=== PATIENT | female | born 1970 | race Caucasian/White ===

== ENCOUNTER 2024-08-09 02:53 | Emergency (ER) | payer BC, SELFPAY ==
--- OUTSIDE RECORDS SUMMARY | 2019-06-18 09:27 | XMS_ITS | Continuity of Care Document ---
Author Organization [facility] Address [address] [place] [address] Phone Care Team Providers Care Rd Mechanical Engineer Name Role Phone Jay Deng MD Unavailable Unavailable Allergies, Adverse Reactions, Alerts Substance Reaction Status Criticality amoxicillin Active No Information Medications Medication Instructions Dosage Effective Dates (start - stop) Status Comments prednisone 5 mg tablet take 2 Tablet by oral route every morning 10 MG - Active Plaquenil 200 mg tablet take 1 tablet by oral route 2 times every day 200 MG - Active trazodone 50 mg tablet take 1 Tablet by oral route every bedtime - Active Vitamin B-12 1,000 mcg tablet take 2 Tablet by Oral route every day 2 Tablet - Active Vitamin D3 2,000 unit tablet take 1 Tablet by Oral route every day 1 Tablet - Active OSTEO BI-FLEX (unknown strength) take 2 Tablet by Oral route every day Not Available - Active glucosamine gabapentin 300 mg capsule Take 1 capsule in the AM and 2 capsules in the PM - Active BIOTIN (unknown strength) take 1 tablet by oral route every day Not Available - Active ibuprofen 200 mg tablet take 3 tablet by oral route in the AM - Active DRY EYE RELIEF (unknown strength) as needed Not Available - Active Procedures Procedure Date Office/Outpatient Visit, Est Office/Outpatient Visit, Est Routine Venipuncture Specimen Handling Rbc Sed Rate, Nonautomated Assay Of Serum Albumin Assay Of Creatinine Transferase (Ast) (Sgot) Alanine Amino (Alt) (Sgpt) Assay Of Ck (Cpk) CReactive Protein Antinuclear Antibodies Rheumatoid Factor, IGM Rheumatoid Factor, IGG, IGA Complete Cbc WAuto Diff Wbc Advance Directives Directive Yes / No Effective Date File Name No Information Encounters Encounter Description Practice Location Reason(s) For Visit Diagnoses Date Provider Providers Copied on Encounter [facility] , [address], [place], [address], [place] tel:[phone] [facility] , No Information 0 Sowmya Thompson. [facility] [address], [place], [address], [place]. tel:[phone] Office/Outpa tient Visit, Est [facility] , [address], [place], [address], [place] tel:[phone] [facility] , Inflammatory Polyarthropa thy (chief complaint) Inflammatory polyarthropa thyBone healthHigh risk medication monitoringDr y mouthFatigue 0 Sowmay Thompson. [facility] [address], [place], [address], [place]. tel:[phone] Referring Provider: Jay Stokes, [facility] [address], [place], [address]. tel:[phone] Office/Outpa tient Visit, Est [facility] , [address], [place], [address], [place] tel:[phone] [facility] , Joint pain multiple sites 0 Sowmya Thompson. [facility] [address], [place], [address], . tel:[phone] Referring Provider: Jay Stokes, [facility] [address], [place], [address]. tel:[phone] Family History Family Member Type Diagnosis Age At Onset Sister Problem (finding) Systemic lupus erythema tosus Payers Payer name Insurance type Covered alliance party ID Authorgrecia murphy(s) [facility] [id number] Social History Type Description Quantity Date Captured Comments Sex Female Smoking Status No Information Chief Complaint And Reason For Visit No Information Reason For Referral Reason For Referral No Information History Of Present Illness Encounter Date Complaint History Of Prese nt Illness Inflammatory Polyarthropathy Functional Status Date Functional Assessmen t No Information Instructions Date Instruction Additional Infor mation No Information Assessments Type Assessment Date No Information Patient Care Teams Name Effective Dates (start - stop) Status Members No Information
--- OUTSIDE RECORDS SUMMARY | 2019-06-18 09:27 | XMS_ITS | Continuity of Care Document ---
Author Organization [facility] Address [address] [place] [address] Phone Care Team Providers Care Used Equipment Sales Representative Name Role Phone Jay Deng MD Unavailable [...] [facility] , [address], [place], [address], [place] tel:[phone] [facility] , No Information 0 Sowmya Thompson. [facility] [address], [place], [address], [place]. tel:[phone] Office/Outpa tient Visit, Est [facility] , [address], [place], [address], [place] tel:[phone] [facility] , Inflammatory Polyarthropa thy (chief complaint) Inflammatory polyarthropa thyBone healthHigh risk medication monitoringDr y mouthFatigue 0 Sowmya Thompson. [facility] [address], [place], [address], [place]. tel:[phone] Referring Provider: Jay Stokes, [facility] [address], [place], [address]. tel:[phone] Office/Outpa tient Visit, Est [facility] , [address], [place], [address], [place] tel:[phone] [facility] , Joint pain multiple sites 0 Sowmya Thompson. [facility] [address], [place], [address], . tel:[phone] Referring Provider: Jay Stokes, [facility] [address], [place], [address]. tel:[phone] Family History Family Member Type Diagnosis Age At Onset Sister Problem (finding) Systemic lupus erythema tosus Payers Payer name Insurance type Covered alliance party ID Authorgrecia murphy(s) [facility] [id number] Social History Type Description Quantity Date Captured [...]
[2024-08-09] VITALS (8 sets, daily range): BP systolic 133–155; BP diastolic 86–92; PULSE 79–97; RESP 16; TEMP 36.4; O2SAT 94–97; BMI 31.9
--- OUTSIDE RECORDS SUMMARY | 2024-08-09 02:56 | XMS_ITS | Clinical Summary ---
Author Organization [facility] Address [address] [place] [address] Care Team Providers Care Manager Equipment Name Role Phone [facility] Primary Care Provider + Allergies Active Allergy Reactions Criticality Noted Date Comments Amoxicillin Nausea 09/28/2017 And dizzy Seasonal Allergies 10/15/2012 Medications glucosamine-cho ndroitin 500-400 MG CAPS per capsule Take 1 capsule by mouth daily Active cyanocobalamin (VITAMIN B-12) 1000 MCG tablet Take by mouth daily Active Cholecalciferol (VITAMIN D3) 2000 UNITS CAPS Acti ve clindamycin (CLINDAMAX) 1 % topical gel 4 7 Active albuterol (PROAIR HFA/PROVENTIL HFA/VENTOLIN HFA) 108 (90 BASE) MCG/ACT InhalerIndicati ons:Acute bronchitis with symptoms > 10 days Inhale 2 puffs into the lungs every 6 hours as needed for shortness of breath / dyspnea or wheezing 1 Inhaler 7 Active guaiFENesin-cod eine (ROBITUSSIN AC) 100-10 MG/5ML SOLN solutionIndicat ions:Acute bronchitis with symptoms > 10 days 1-2 tsp PO qhs prn 120 mL 7 Active azithromycin (ZITHROMAX) 250 MG tabletIndicatio ns:Acute bronchitis with symptoms > 10 days Two tablets first day, then one tablet daily for four days. 6 tablet 7 Active amitriptyline (ELAVIL) 10 MG tablet Take 2 tablet at bedtime if needed for insomnia 8 Active Active Problems Problem Noted Date Diagnosed Date S/P LEEP of cervix 10/23/2012 Overview (10/23/2012): 02/2006: Leep with Dr. Carmen Nelson. VERITO III, extends to margins 06/2012: NIL pap ( outside record) Family History Medical History Relation Comments Diabetes Father Hyperlipidemia Father Hypertension Father Prostate Cancer Father Substance Abuse Father Relation Status Comments Father Alive Mother Social History Tobacco Use Types Packs/Day Years Used Date Smoking Tobacco: Never Smokeless Tobacco: Never Tobacco Cessation:Counseling Given: Yes Alcohol Use Standard Drinks/Week Comments No 0 (1 standard drink = 0.6 oz pur e alcohol) PHQ-2 Answer Date Recorded PHQ-2 Score 0 03/06/2018 Adolescent Education Answer Date Record ed Getting School Help Needed Not on file 12/03 Comments No Sex and Gender Information Value Date Recorded Sex Assigned at Not on file Legal Sex Female 3:37 AM SPECIAL LOAN OFFICER Gender Identity Not on file Sexual Orientation Not on file Last Filed Vital Signs Vital Sign Reading Time Taken Comments Blood Pressure 116/76 02/22/2018 10:40 AM SPECIAL LOAN OFFICER Pulse 79 02/22/2018 10:40 AM SPECIAL LOAN OFFICER Temperature 36.5 C (97.7 F) 09/28/2017 3:21 PM CDT Respiratory Rate 16 02/22/2018 10:40 AM SPECIAL LOAN OFFICER Oxygen Saturation 98% 02/22/2018 10:40 AM SPECIAL LOAN OFFICER Inhaled Oxygen Concentration - - Weight 82.1 kg (181 lb) 02/22/2018 10:40 AM SPECIAL LOAN OFFICER Height 170.2 cm (5' 7) 02/22/2018 10:40 AM SPECIAL LOAN OFFICER Body Mass Index 28.35 02/22/2018 10:40 AM SPECIAL LOAN OFFICER Plan of Treatment Not on file Insurance [facility] [address] Care Teams Manager Equipment Relationship Specialty Start Date End Date [facility] PCP - General Family Practice 01/10/18
--- OUTSIDE RECORDS SUMMARY | 2024-08-09 02:56 | XMS_ITS | Patient Health Record ---
Author Organization [facility] Address [address] [place] [address] Care Team Providers Care Production Hand Name Role Phone Ashley Luara Primary Care Provider [phone] Allergies Allergen (clinical drug ingredient) Drug/Non Drug Allergy documented on EMR Reaction Allergy Type Onset Date Status amoxicillin Amoxicillin dizziness, diarrhea, nausea Drug Allergy Active Reason For Referral No Information Medications Medication SIG (Take, Route, Frequency, Duration) Notes Start Date End Date Status Vitamin B12 1000 MCG 2 tablets Orally On ce a day Active Glucosamine Chondr Complex 2 tablets Ora lly Once a day Active Amitriptyline HCl 2 tablets Orally bef ore bed Active Vitamin D 1000 UNIT 1 tablet Orally Once a day Active Problems Problem Type SNOMED Code ICD Code Onset Dates Problem Status W/U Status Risk Notes Problem 688589148 Dysmenorrhea (N94.6) Active confirmed Problem 306802171 Menorrhagia with regular cycle (N92.0) Active confirmed Problem 30125330 Intramural leiomyoma of uterus (D25.1) Active confirmed Plan Of Treatment No Information Insurance Providers Payer Name Payer Address Payer Phone Subscriber Number Group Number Insured Name Patient Relationship to Insured Coverage Start Date Coverage End Date [place] [address] [address] [place] [address] [id number] Alison Kelsey Self - patient is the insured 7 Medical (General) History Surgical History Surgery Date(Month/Year) Laproscopy x 3 [id number] ACL left knee 2000 Hospitalization History Reason Date(Month/Year) Child , male 1994 Child , male 1996
--- OUTSIDE RECORDS SUMMARY | 2024-08-09 02:56 | XMS_ITS | Clinical Summary ---
Author Organization [facility] Address [address] [place] [id number] Care Team Providers Care Application Developer Manager Name Role Phone Regino Hensley MD Unavailable [phone] Alba Ferrell Primary Care Provider [phone] Allergies Active Allergy Reactions Criticality Noted Date Comments Amoxicillin Nausea Only 09/28/2017 And dizzy Medications cholecalciferol (VITAMIN D3) 2,000 unit capsule Take by mouth. Activ e cyanocobalamin 1,000 mcg tablet Take by mouth. Activ e XIIDRA 5 % dpet INSTILL 1 DROP INTO BOTH EYES TWICE DAILY DIRECTED. 020 Active glucosam dailey vsk-owggwkprh-B -Mn (GLUCOSAMINE-CH ONDROITIN) 291-857-51-3 mg cap Take 1 capsule by mouth. Active ikqtp-3g-ojm-ep a-fish oil-D3 (De3 Dry Eye [place] Benefits) 800 mg-186.67 mg-8.33 mcg cap Take by mouth. Active biotin (Hair, Skin and Nails, biotin,) 10,000 mcg chew Chew by mouth. 024 Active DULoxetine (CYMBALTA) 60 mg Delayed-release capsuleIndicati ons:Neuropathy Take 1 Capsule (60 mg) by mouth once daily. 90 Capsule 3 024 Active omeprazole (PRILOSEC) 40 mg Delayed-Release capsuleIndicati ons:Gastroesoph ageal reflux disease without esophagitis Take 1 Capsule (40 mg) by mouth once daily before a meal. 90 Capsule 024 Active polyethylene glycol-electrol yte (GOLYTELY) 236-22.74-6.74 -5.86 gram suspensionIndic ations:Encounte r for screening colonoscopy Drink 2 liters the day before colonoscopy and 2 liters 6 hours before colonoscopy appointment 4000 mL 024 Active amitriptyline 25 mg tabletIndicatio ns:Neuropathy,D ifficulty sleeping,Headac he syndrome TAKE 1 TABLET BY MOUTH AT BEDTIME 90 Tablet 1 025 Active semaglutide (weight loss) (Wegovy) 1 mg/0.5 mL subcutaneous penIndications: Obesity (BMI 30-39.9) Inject 1 mg subcutaneous once weekly. 6 mL 2 025 Active amitriptyline (ELAVIL) 25 mg tabletIndicatio ns:Neuropathy,D ifficulty sleeping,Headac he syndrome Take 1 Tablet (25 mg) by mouth at bedtime. 90 Tablet 3 024 2024 Discontinued semaglutide, weight loss, (Wegovy) 2.4 mg/0.75 mL subcutaneous penIndications: Class 2 severe obesity with body mass index (BMI) of 35 to 39.9 with serious comorbidity (HC) Inject 2.4 mg subcutaneous once weekly. Start after 4 weeks of 1.7 mg dosing. Continue as maintenance dose. 9 mL 3 025 2024 Discontinued(* Medication adjustment) semaglutide (weight loss) (Wegovy) 1.7 mg/0.75 mL subcutaneous penIndications: Obesity (BMI 30-39.9) Inject 1.7 mg subcutaneous once weekly. 6 mL 3 025 2024 Discontinued(* Medication adjustment) Active Problems Problem Noted Date Diagnosed Date Pap smear for cervical cancer screening 07/07/19 24 Overview (07/07/2023): 05/2023 NIL/HPV negative. Plan: Pap/HPV due 05/2028. Prediabetes 06/26/2023 Malignant neoplasm of overla pping sites of left breast in female, estrogen receptor positive 06/26/2023 Chronic painful polyneuropathy after chemotherap y 03/26/2021 Total body pain 04/13/2019 Anxiety 04/13/2019 Overview (04/13/2019): March 2019: Starting wellbutrin, will need to watch both depression and anxiety symptoms on this. Episode of moderate major depression 04/13/2019 Overview (04/13/2019): March 2019: Starting wellbutrin, will need to watch both depression and anxiety symptoms on this. Neuropathy 04/11/2019 Overview (04/11/2019): Started towards end of Chemotherapy Nov 2018. Feet and hands. Plantar fascial fibromatosis 10/03/2006 Resolved Problems Problem Noted Date Diagnosed Date Resolved Date Malignant neoplasm of upper- inner quadrant of left breast in female, estrogen receptor positive 08/19/2018 03/26/2021 Cancer Staging:Clinical: ycT2, ycN1(f), cM0, G2, ER+, MI+, HER2- - Signed by Robinson Smith MD on 08/19/2018 Pathologic: ypT1c, ypN1a, cM0, G1 - Signed by Celestina Calixto PA on 10/02/2018 Overview (04/11/2019): January 2018: left breast cancer, Surgery, chemotherapy and radiation. Radiation completed Nov 2018. Encounters Date Type Department Care Team Description 07/15/2024 Refill [facility] [address] [place] [address] Alba Ferrell PA Refill Request (Amitriptyline) 07/13/2024 Refill [facility] [address] [place] [address] Alba Ferrell PA Refill Request (Wegovy) 07/12/2024 Refill [facility] [address] [place] [address] Alba Ferrell PA Refill Request (Wegovy Inj 1.7mg/0.75ml) from Last 3 Months Immunizations Immunization Administration Dates Next Due Tdap 08/24/2015 Family History Medical History Relation Name Comments Cancer Father bladder and pro state, dx in 70s Cancer-prostate Father 70's yrs old Hyperlipidemia Father Hypertension Father Kidney disease Father Melanoma Father 70's yrs old Mental illness Mother Cancer-breast No Family History Cancer-colon No Family History Cancer-ovarian No Family History Cancer-pancreatic No Family History Relation Name Status Comments Father Alive Mother Social History Tobacco Use Types Packs/Day Years Used Date Smoking Tobacco: Never Smokeless Tobacco: Never Tobacco Cessation:Counseling Given: Yes Alcohol Use Standard Drinks/Week Comments Yes 0 (1 standard drink = 0.6 oz pur e alcohol) 3-4 times a year PHQ-2 Answer Date Recorded PHQ-2 TOTAL SCORE 0 06/23/2023 Social Connections Answer Date Recorded Do you often feel lonely or isolated from those around you? 0 06/23/2023 Financial Resource Strain Answer Date R ecorded Difficulty of Paying Living Expenses 3 06/23/2023 Difficulty of Paying Living Expenses Not on file 06/23/2023 Food Insecurity Answer Date Recorded Do you worry your food will run out before you are able to buy more? 1 06/23/2023 Transportation Needs Answer Date Record ed Does lack of transportation keep you from medica l appointments? 1 06/23/2023 Does lack of transportation keep you from work, meetings or getting things that you need? 1 06/23/2023 Housing Stability Answer Date Recorded What is your housing situation today? 1 06/23/2023 Utilities Answer Date Recorded Do you have trouble paying f or utilities (for example, heat, electricity, water, phone)? 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 Not on file Not on file Not on file Obstetrics History Para Term AB IAB SAB Ectopic Multiple Livin g Live Births 5 2 2 3 3 Date Outcome GA Total Labor Labor/2nd/3rd Weight Sex Type Anes PTL Veronica A1 A5 Name Clin 1994 Term M Vag Landon 1995 Term M Vag Dewayne 1997 Last Filed Vital Signs Vital Sign Reading Time Taken Comments Blood Pressure 127/86 12/21/2023 10:51 AM CDT Pulse 79 12/21/2023 10:51 AM CDT Temperature 37.1 C (98.8 F) 01/24/2022 2:43 PM BRAZING MACHINE OPERATOR Respiratory Rate 16 03/26/2021 1:28 PM BRAZING MACHINE OPERATOR Oxygen Saturation 95% 12/21/2023 10:51 AM CDT Inhaled Oxygen Concentration - - Weight 103 kg (227 lb) 12/21/2023 10:51 AM CDT Height 170.2 cm (5' 7) 12/21/2023 10:51 AM CDT Body Mass Index 35.55 12/21/2023 10:51 AM CDT Plan of Treatment Health Maintenance Due Date Last Done Comments Hepatitis B series for 19+ ( 1 of 3 - 19+ 3-dose series) 07/25/1991 Colonoscopy through age 75 2017 Pneumococcal series for age 50+ (1 of 1 - PCV) 2022 Zoster (shingles) series for age 50+ (1 of 2) 2022 COVID-19 vaccine series ( - season) 2023 Depression screening for age 12+ 06/22/2024 06/23/2023, 09/02/2022, 08/31/2022, Additional history exists Mammogram for age 45-75 08/31/2024 09/01/19 24, 08/24/2022, 02/05/2020 Influenza Vaccine (Season Ended) 2024 BMI (ht and wt on same day) for age 18+ 12/20/2024 12/21/2023, 06/23/2023, 04/14/2021, Additional history exists Tetanus booster 08/23/2025 08/24/2015 Lipids for age 45-75 06/22/2028 06/23/2023, 04/14/19 22 Pap test for age 21-65 06/22/2028 , 06/23/2023, 06/29/2020 (Completed outside of [facility]) Tdap Completed 08/24/2015 HIV for age 15-65 Completed 06/23/2023 Hepatitis C screening for ag e 18-79 Completed 06/23/2023 Medical Devices Implanted Type Area Deputy Jailer Device Identifier Shelf Expiration Date Model / Serial / Lot Port Low Profile Slim W/6fr 1 Lmn [employer] - [id number] Implanted:Qty: 1 on 03/29/2018 by Melissa Morales MD at [facility] Right: Chest [employer] 06/27/2019 [id number] / / [id number] Procedures Procedure Name Priority Date/Time Associated Diagnosis Comments XR MAMMO ESAU BILAT SCREEN Routine 09/01/2023 3:56 PM CDT Visit for screening mammogram ANTI HIV 1/2 Routine 06/23/2023 10:20 AM CDT Screening for HIV (human immunodeficiency virus) ANTI HCV Routine 06/23/2023 10:20 AM CDT Need for hepatitis C screening test LIPID PANEL W REFLEX MEASURED LDL Routine 06/23/2023 10:20 AM CDT Screening cholesterol level RE EXAMINER THIN PREP PAP SCREEN IMAGED Routine 06/23/2023 9:55 AM CDT Screening for malignant neoplasm of cervix from Last 3 Months or Most Recently Relevant to Health Maintenance Results * XR MAMMO ESAU BILAT SCREEN (09/01/2023 3:56 PM CDT) Anatomical Region Laterality Modality BREASTS, Breast Left, Breast Right Bilateral Mammography Impressions 09/01/2023 4:02 PM CDT There is no radiographic evidence for malignancy. Recommend annual mammograms. MAMMOGRAM ASSESSMENT: ACR 1 Negative PATIENTS: You will also receive a letter with your examination results in an easy to read format. If you have questions about your results, please contact your referring provider. Narrative 09/01/2023 4:02 PM CDT For Patients: As a result of the 21st Century Cures Act, medical imaging exams and procedure reports are released immediately into your electronic medical record. You may view this report before your referring provider. If you have questions, please contact your health care provider. XR MAMMO ESAU BILAT SCREEN [[id number]] CLINICAL HISTORY: This is an asymptomatic 53 y.o. patient. INDICATION FOR EXAM: Mammogram Screening. TECHNIQUE: CC & MLO views were obtained. This study was evaluated with the assistance of Computer-Aided Detection. Breast Tomosynthesis was used in interpretation. COMPARISON FILM: Yes 08/24/22 [facility] 02/05/20 [facility] FINDINGS: There are scattered areas of fibroglandular density. There are no dominant masses, suspicious micro calcifications or areas of architectural distortion. Alba JACOBSEN MAMMO Final Resu lt * (ABNORMAL) LIPID PANEL W REFLEX MEASURED LDL (06/23/2023 10:20 AM CDT) CHOLESTEROL,TOTAL 208(H) 100 - 199 mg/dL 06/23/2023 4:47 PM CDT [facility] Comment: Cholesterol, Total Reference Ranges Desirable <200 mg/dL Borderline 200-239 mg/dL High >=240 mg/dL TRIGLYCERIDES 78 <150 mg/dL 06/23/2023 4:47 PM CDT [facility] HDL CHOLESTEROL 83 >40 mg/dL 4:47 PM CDT [facility] NON-HDL CHOLESTEROL 125 <145 mg/dl 06/23/2023 4:47 PM CDT [facility] CHOL/HDL RATIO 2.51 <4.50 06/23/2023 4:47 PM CDT [facility] LDL CHOLESTEROL 109 <=130 mg/dL 06/23/2023 4:47 PM CDT [facility] VLDL CHOLESTEROL 16 <=30 mg/dL 06/23/2023 4:47 PM CDT [facility] PROVIDER ORDERED STATUS RANDOM 06/23/2023 4:47 PM CDT [facility] Blood BLOOD SPECIMEN / Unknown Venipuncture / Unknown 06/23/2023 10:20 AM CDT 06/23/2023 10:22 AM CDT Alba JACOBSEN CHEMISTRY Final Resu lt [facility] [address] [place] [address], [place] * ANTI HCV (06/23/2023 10:20 AM CDT) Pathologist [facility] HEPATITIS C ANTIBODY Non-Reacti ve Non-React everett 06/23/2023 4:39 PM CDT [facility] Comment:Please note, per www .CDC.gov: If a patient is known to be at high risk of HCV infection, or is symptomatic, and the physician's suspicion of HCV infection is high, HCV RNA testing is often employed and is of diagnostic value, even after an initial negative anti-HCV test result. Blood BLOOD SPECIMEN / Unknown Venipuncture / Unknown 06/23/2023 10:20 AM CDT 06/23/2023 10:22 AM CDT Alba JACOBSEN SEND OUTS Final Resu lt Performing Organization Address [facility]/ZIP Co de Phone Number [facility] [address] [place] [address], [place] * ANTI HIV 1/2 (06/23/2023 10:20 AM CDT) [facility] HIV-1/HIV-2 SCREEN Non-Reacti ve Non-Reacti ve 06/23/2023 4:32 PM CDT [facility] Comment:HIV-1 p24 and HIV-1/ HIV-2 Ab Not Detected. Blood BLOOD SPECIMEN / Unknown Venipuncture / Unknown 06/23/2023 10:20 AM CDT 06/23/2023 10:22 AM CDT Alba JACOBSEN SEND OUTS Final Resu lt Performing Organization Address City/[facility]/ZIP Co de Phone Number [facility] [address] [place] [address], [place] * RE EXAMINER THIN PREP PAP SCREEN IMAGED (06/23/2023 9:55 AM CDT) [facility] Case Report Gynecologic Cytology Report Case: [id number] Authorizing Provider: Alba Ferrell PA Collected: 06/23/2023 0955 Ordering Location: [facility] Received: 06/23/2023 1052 Clinic First Screen: Sharifa Hsu Specimen: RE EXAMINER ThinPrep Vial Screening, Cervical 07/06/2023 1:55 PM CDT [facility] [employer] [facility] INTERPRETATION/ RESULT NEGATIVE FOR INTRAEPITHELIAL LESION OR MALIGNANCY (NIL) (none) 07/06/2023 1:55 PM CDT [facility] at 1354 CDT SPECIMEN ADEQUACY Satisfactory for evaluation Endocervical component present 07/06/2023 1:55 PM CDT [facility] HPV REQUEST HPV and PAP 07/06/2023 1:55 PM CDT [facility] Date of LMP unknown 07/06/2023 1:55 PM CDT [facility] Last Pap Date 07/1707/06/2023 1:55 PM CDT [facility] Last Pap Result NIL 1:55 PM CDT [facility] Abnormal Pap or [place] Bx in last 5 years No 07/06/2023 1:55 PM CDT [facility] Menstrual Status Hormonally Suppressed 07/06/2023 1:55 PM CDT [facility] [place] Bx Done Today No 07/06/2023 1:55 PM CDT [facility] Additional Information None given 07/06/2023 1:55 PM CDT [facility] Comment: Cytology is screened at [facility] idemama [facility] - [address], [place] [address] and [facility] - [address], [place] [address] and [facility] - [address] [place] [address] Interpreted at [facility]emama [facility] - [address], [place] [address] Automated Review Successful 07/06/2023 1:55 PM CDT [facility] Comment:Specimen processed s uccessfully by automated metal trimmer device, ThinPrep Imaging System, [employer] ANCILLARY TESTING RE EXAMINER HPV Ordered, Please see separate report 07/06/2023 1:55 PM CDT [facility]AL [facility] Note The pap test is a screening technique, not a diagnostic procedure. It is used primarily to screen for squamous cancers and precursor lesions. Published studies have shown that it is subject to both false negative and false positive results. The pap test should not be used as the sole means to diagnose or exclude pre-malignant and malignant lesions. 07/06/2023 1:55 PM CDT [facility]- [facility] Other (Cervical) Non-Blood / Unknown 06/23/2023 9:55 AM CDT 06/23/2023 10:52 AM CDT us Alba JACOBSEN PATHOLOGY/CYTOLOGY Final R esult [facility] [address] [place] [address], from Last 3 Months or Most Recently Relevant to Health Maintenance Insurance [facility] Advance Directives * Full Code (Latest Code Status on File) Date Activated Date Inactivated Comments 09/19/2018 9:42 AM 09/19/2018 5:31 PM * Full Code Date Activated Date Inactivated Comments 03/29/2018 9:48 AM 03/29/2018 4:35 PM Care Teams Application Developer Manager Relationship Specialty Start Date End Date Alba Ferrell [place] [address] PCP - General Physician Watch Parts Grinder 06/26/23 Regino Hensley MD [address] [facility] [address] [place] [address] Rheumatology Rheumatology 10/30/19
--- NOTE | 2024-08-09 03:35 | CRLHL7_ITS ---
For Patients: As a result of the Century Cures Act, medical imaging exams and procedure reports are released immediately into your electronic medical record. You may view this report before your referring provider. If you have questions, please contact your health care provider. Indication: Chest pain. Technique: Two views of the chest. Comparison: None. Findings/Impression: The heart is not abnormally enlarged. Mediastinal contours are grossly within normal limits. No definite confluent airspace opacity. No pleural effusion or pneumothorax. No acute osseous abnormality. Dictated by Jean Pierre Mack MD @ 08/09/2024 3:51:19 AM (Electronically Signed)
[2024-08-09] MEDS: KETOROLAC 30 MG/ML inj IM (04:06)
[2024-08-09 04:07] LABS: Basophils Absolute Auto 0.08 K/uL (0.00-0.30); Basophils Percent Auto 0.9 % (0.0-3.0); Eosinophils Percent Auto 3.5 % (0.0-7.0); Hematocrit 42.9 % (33.0-51.0); Hemoglobin* 14.5 gm/dL (12.0-16.0); Immature Granulocytes Abs Auto 0.14 K/uL (0.00-0.30); Immature Granulocytes Pct Auto 1.6 %; Lymphocytes Absolute Auto 2.71 K/uL (0.90-2.90); Lymphocytes Percent Auto 31.5 % (20-44); Mean Corpuscular HGB Conc 34 gm/dL (32-36); Mean Corpuscular Hemoglobin 32 pg (26-34); Mean Corpuscular Volume 95 fL (80-100); Monocytes Percent Auto 8.1 % (0.0-11.0); Neutrophils Absolute Auto 4.67 K/uL (1.7-7.0); Neutrophils Percent Auto 54.4 % (42.0-72.0); Platelet Count* 310 K/uL (140-440); RDW Coefficient of Variation % 12.2 % (11.5-15.5); Red Blood Count 4.54 m/uL (4.00-5.20)
[2024-08-09 04:15] LABS: Slide Review Reflex No
[2024-08-09 04:16] LABS: Chloride* 101 mmol/L (96-114); Sodium* 139 mmol/L (135-149)
[2024-08-09 04:17] LABS: Potassium* 3.6 mmol/L (3.6-5.1)
[2024-08-09 04:19] LABS: Blood Urea Nitrogen* 12 mg/dL (7-30); Creatinine* 0.6 mg/dL (0.5-1.5); Est. Creatinine Clearance* 110.64; Estimated Glomerular Filt Rate 108 ml/min; Lipase* 85 U/L (23-300)
[2024-08-09 04:20] LABS: Anion Gap 11 mEq/L (7-15); Calcium* 9.2 mg/dL (8.4-10.6); Carbon Dioxide* 27 mmol/L (20-32); Glucose* 157 mg/dL (60-115)
[2024-08-09 04:36] LABS: NT Pro B Type NatriureticPept* 32 pg/mL (See Note)
--- NOTE | 2024-08-09 04:40 | ED.CHESTPAIN ---
HPI - Chest Pain General Date Seen: 08/09/24 Chief Complaint: Chest Pain Stated Complaint: upper chest neck shoulder pain Time Seen by Provider: 08/09/24 03:39 Source: patient Mode of arrival: ambulatory Limitations: no limitations History of Present Illness HPI narrative: Patient is a 54-year-old female who comes in with a two day history of anterior chest pain. This does not radiate. It is not necessarily made worse by activity. Ibuprofen has not helped. There is no cough, shortness of breath, fever. It got worse tonight at work prompting her ER visit. She has never had this type of pain previously. No physical activity that would of brought it on. She says it feels like she has worked her chest muscles too hard but she has not. She has a history of breast cancer with a left-sided lumpectomy and radiation treatment. She does have some acid reflux issues but this feels different than that. No nausea or vomiting. No history of blood clots or known family history of blood clots. Related Data Home Medications ?Medication ?Instructions ?Recorded ?Confirmed amitriptyline 25 mg tablet 25 mg PO QPM 08/09/24 08/09/24 duloxetine 60 mg capsule,delayed 60 mg PO DAILY 08/09/24 08/09/24 release Allergies Allergy/AdvReac Type Severity Reaction Status Date / Time Penicillins Allergy Nausea Verified 08/09/24 03:03 Review of Systems Narrative Review of systems is positive for some GI upset related to will go be. She has stop that medication. She has chronic depression and takes duloxetine. Review of systems in all other areas is noted to be negative. PFSH PFS Social History Smoking Status: Former smoker Do you use any of these nicotine containing products: None How often do you have a drink containing alcohol: never AUDIT-C Alcohol total score: 0 Non-prescribed substance use: denies use Exam Narrative Exam Narrative: Vitals noted. HEENT: Conjunctiva clear. Tympanic membranes are pearly white bilaterally. Posterior pharynx is clear without erythema or exudate. Neck is supple without adenopathy, thyromegaly, carotid bruit. Lungs: Clear to auscultation in all [place]. No wheezes, rales, rhonchi. Heart: Regular rate and rhythm without murmur. There is some mild tenderness to palpation across her anterior chest. Not specifically localized to the costochondral joints. Abdomen: Soft and nontender. No guarding, rigidity, rebound. Bowel sounds are normal. No palpable masses. Extremities: No cyanosis or edema. Good distal pulses. Skin: No abnormalities noted of the exposed skin. Neurologic: Awake, alert, fully oriented. Neurologic exam is nonfocal. Const Vital Signs, click to edit/add: Vital Signs - 24 hr 08/09/24 02:58 08/09/24 03:04 08/09/24 03:39 Temperature 97.6 F Pulse Rate 90 Pulse Rate [Pulse Oximeter] 97 94 Respiratory Rate 16 16 Blood Pressure Blood Pressure [Left Upper Arm] 133/92 H Blood Pressure [Right Upper Arm] 155/92 H Pulse Oximetry 97 95 96 Oxygen Delivery Method Room Air Room Air 08/09/24 03:45 08/09/24 04:00 08/09/24 04:08 Temperature Pulse Rate 87 87 83 Pulse Rate [Pulse Oximeter] Respiratory Rate 16 Blood Pressure 139/86 Blood Pressure [Left Upper Arm] Blood Pressure [Right Upper Arm] Pulse Oximetry 94 96 96 Oxygen Delivery Method 08/09/24 04:09 08/09/24 04:15 Temperature Pulse Rate 79 84 Pulse Rate [Pulse Oximeter] Respiratory Rate Blood Pressure Blood Pressure [Left Upper Arm] Blood Pressure [Right Upper Arm] Pulse Oximetry 96 95 Oxygen Delivery Method Course Course ED Course: Patient seen and examined. EKG shows normal sinus rhythm with a rate of 99. No acute ST or T-wave changes. Chest x-ray is unremarkable. Labs are drawn. She is given Toradol 30 mg IM. Reevaluation(s) Reevaluation #1: CBC is normal. Basic metabolic panel is normal other than a glucose of 157. Lipase is normal. BNP is normal. Troponin is negative. D-dimer is still pending. Reevaluation #2: Toradol has greatly improved her pain. Her D-dimer is negative. We discussed this is likely musculoskeletal. She is ready for discharge. Vital Signs Vital signs: Initial Vital Signs Temperature 97.6 F 08/09/24 02:58 Temperature Source Temporal Artery Scan 08/09/24 02:58 Pulse Rate 97 08/09/24 02:58 Respiratory Rate 16 08/09/24 02:58 Blood Pressure 155/92 H 08/09/24 02:58 Blood Pressure Mean 113 H 08/09/24 02:58 Blood Pressure Position Semi-Fowlers 08/09/24 02:58 Pulse Oximetry 97 08/09/24 02:58 Oxygen Delivery Method Room Air 08/09/24 02:58 Vital Signs Temperature 97.6 F 08/09/24 02:58 Pulse Rate 97 08/09/24 02:58 Respiratory Rate 16 08/09/24 02:58 Blood Pressure 155/92 H 08/09/24 02:58 Pulse Oximetry 97 08/09/24 02:58 Oxygen Delivery Method Room Air 08/09/24 02:58 Temperature 97.6 F 08/09/24 02:58 Pulse Rate 84 08/09/24 04:15 Respiratory Rate 16 08/09/24 04:08 Blood Pressure 139/86 08/09/24 04:08 Pulse Oximetry 95 08/09/24 04:15 Oxygen Delivery Method Room Air 08/09/24 03:04 Medications Administered Medications: Discontinued Medications Generic Name Dose Route Start Last Admin Trade Name Freq PRN Reason Stop Dose Admin Ketorolac Tromethamine 30 mg 08/09/24 03:55 08/09/24 04:06 Ketorolac 30 Mg/Ml Inj IM 08/09/24 03:56 30 mg ONCE ONE Administration MDM - Chest Pain Lab Data Labs: Lab Results 08/09/24 08/09/24 Range/Units 03:02 03:07 WBC 8.60 (4.50-11.00) K/uL RBC 4.54 (4.00-5.20) m/uL Hgb 14.5 (12.0-16.0) gm/dL Hct 42.9 (33.0-51.0) % MCV 95 (80-100) fL MCH 32 (26-34) pg MCHC 34 (32-36) gm/dL RDW Coeff of [place] 12.2 (11.5-15.5) % Plt Count 310 (140-440) K/uL Neut % (Auto) 54.4 (42.0-72.0) % Lymph % (Auto) 31.5 (20-44) % [place] % (Auto) 8.1 (0.0-11.0) % Eos % (Auto) 3.5 (0.0-7.0) % Baso % (Auto) 0.9 (0.0-3.0) % Neut # (Auto) 4.67 (1.7-7.0) K/uL Lymph # (Auto) 2.71 (0.90-2.90) K/uL [place] # (Auto) 0.70 (0.00-0.90) K/UL Eos # (Auto) 0.30 (0.00-0.50) K/uL Baso # (Auto) 0.08 (0.00-0.30) K/uL Abs Immat Gran (auto) 0.14 (0.00-0.30) K/uL Imm/Tot Granulo (auto) 1.6 % D-Dimer Quant (PE/DVT) 0.21 (0.00-0.50) ug/ml Sodium 139 (135-149) mmol/L Potassium 3.6 (3.6-5.1) mmol/L Chloride 101 (96-114) mmol/L Carbon Dioxide 27 (20-32) mmol/L Anion Gap 11 (7-15) mEq/L BUN 12 (7-30) mg/dL Creatinine 0.6 (0.5-1.5) mg/dL Estimated Creat Clear 110.64 Estimated GFR 108 ml/min Glucose 157 H (60-115) mg/dL Calcium 9.2 (8.4-10.6) mg/dL NT-Pro-B Natriuret Pep 32 (See Note) pg/mL Lipase 85 (23-300) U/L POC Troponin I 0.00 L (0.01-0.04) ng/ml Discharge Plan Discharge Clinical Impression: Chest wall pain Patient Disposition: Home, Self-Care Condition: Improved Instructions: Chest Wall Pain (ED) Additional Instructions: Ibuprofen 600 mg three times daily. Hot packs. If pain recurs follow up in the clinic. Tests for heart attack, blood clot, pneumonia, pancreatitis were all normal. Prescriptions: No Action amitriptyline 25 mg tablet 25 mg PO QPM duloxetine 60 mg capsule,delayed release(DR/EC) 60 mg PO DAILY Follow Up/Referrals: Alba Ferrell PA-C [Primary Care Provider, Family Practice] Stand Alone Forms: [facility] Info Instructions
[2024-08-09 04:56] LABS: D Dimer Quantitative* 0.21 ug/ml (0.00-0.50)
== END 2024-08-09 05:22 | disposition home or self-care (01) ==
PROVIDERS: Emergency Provider Family Medicine; PCP Physician Assistant
DX: R07.89 Other chest pain (principal); K21.9 Gastro-esophageal reflux disease without esophagitis
CPT/HCPCS: 36415; 71046; 80048; 83690; 83880; 84484; 85025; 85379; 93005; 96372; 99282; 99284; 99285; J1885